=== PATIENT | male | born 1975 | race Caucasian/White ===

== ENCOUNTER 2020-04-22 16:38 | Emergency (ER) | payer OTHER ==
[~2020-04-22 16:38] MED LIST: GLIPIZIDE10 MG PO; METFORMIN1000 M1 PO
== END 2020-04-22 21:05 | disposition short-term general hospital (02) ==
LOC: ED 16:38
DX: Z02.89 Encounter for other administrative examinations (principal)

== ENCOUNTER 2020-04-22 16:38 | Inpatient (IN) | payer OTHER ==
[~2020-04-22] VITALS: Ht 182.9 cm; Wt 98.0 kg
[2020-04-22 16:45] VITALS: Ht 182.9 cm; Wt 98.0 kg
[2020-04-22 18:03] LABS: BASOPHIL % 0.1 % (0-2); RED CELL DISTRIBUTION WIDTH 12.7 % (11.5-14.5)
[2020-04-22 18:04] LABS: PLATELET COUNT 435 x10^3mcL (130-400)
[2020-04-22 18:14] LABS: CALCIUM 9.1 mg/dL (8.5-10.1); CARBON DIOXIDE 21.8 mmol/L (21-32); CREATININE SERUM 2.2 mg/dL (0.7-1.3); POTASSIUM SERUM 5.1 mmol/L (3.5-5.1)
[2020-04-22 18:26] LABS: ALBUMIN 2.2 g/dL (3.4-5.0); BILIRUBIN TOTAL 0.4 mg/dL (0.20-1.00); MAGNESIUM 2.6 mg/dL (1.8-2.4); TOTAL PROTEIN, SERUM 8.4 g/dL (6.4-8.2)
[2020-04-22 18:28] LABS: UA SPECIFIC GRAVITY 1.025 (1.005-1.035); microscopic required? YES; urine erythrocyte 2+ (NEGATIVE)
[2020-04-22 18:51] LABS: AMPHETAMINE QUAL UR NONE DETECTED (See below)
[2020-04-22 22:24] VITALS: BP 175/101
[2020-04-23 05:18] VITALS: BP 156/87
[2020-04-23 06:11] LABS: BASOPHIL % 0.3 % (0-2); PLATELET COUNT 345 x10^3mcL (130-400); RED CELL DISTRIBUTION WIDTH 12.4 % (11.5-14.5)
[2020-04-23 06:28] LABS: CALCIUM 8.1 mg/dL (8.5-10.1); CARBON DIOXIDE 21.4 mmol/L (21-32); CREATININE SERUM 1.9 mg/dL (0.7-1.3); MAGNESIUM 2.3 mg/dL (1.8-2.4); POTASSIUM SERUM 4.7 mmol/L (3.5-5.1)
[2020-04-23 08:31] VITALS: BP 183/94
[2020-04-23 11:59] VITALS: BP 181/95
[2020-04-23 15:51] VITALS: BP 140/78
[2020-04-23 19:59] VITALS: BP 161/92
[2020-04-23 23:07] VITALS: BP 155/87
[2020-04-24] VITALS (7 sets, daily range): BP systolic 122–190; BP diastolic 67–106
[2020-04-25 05:00] VITALS: BP 173/94
[2020-04-25 06:55] LABS: CALCIUM 7.6 mg/dL (8.5-10.1); CARBON DIOXIDE 21.1 mmol/L (21-32); CREATININE SERUM 1.6 mg/dL (0.7-1.3); POTASSIUM SERUM 4.5 mmol/L (3.5-5.1)
[2020-04-25 07:38] VITALS: BP 196/106
[2020-04-25 08:01] LABS: BASOPHIL % 0.6 % (0-2); PLATELET COUNT 391 x10^3mcL (130-400); RED CELL DISTRIBUTION WIDTH 12.4 % (11.5-14.5)
[2020-04-25 12:00] VITALS: BP 186/110
[2020-04-25 16:11] VITALS: BP 154/92
[2020-04-25 20:04] VITALS: BP 167/93
[2020-04-25 21:27] VITALS: BP 174/95
[2020-04-26 06:12] VITALS: BP 180/102
[2020-04-26 07:03] LABS: BASOPHIL % 0.4 % (0-2); RED CELL DISTRIBUTION WIDTH 12.6 % (11.5-14.5)
[2020-04-26 07:05] LABS: PLATELET COUNT 404 x10^3mcL (130-400)
[2020-04-26 07:28] LABS: CALCIUM 8.4 mg/dL (8.5-10.1); CARBON DIOXIDE 22.6 mmol/L (21-32); CREATININE SERUM 1.6 mg/dL (0.7-1.3); POTASSIUM SERUM 4.7 mmol/L (3.5-5.1)
[2020-04-26 08:01] VITALS: BP 113/86
[2020-04-26 12:36] VITALS: BP 165/108
[2020-04-26 17:36] VITALS: BP 157/106
[2020-04-26 20:25] VITALS: BP 165/98
[2020-04-27] VITALS (7 sets, daily range): BP systolic 91–186; BP diastolic 54–109
[2020-04-27 07:05] LABS: BASOPHIL % 0.4 % (0-2); PLATELET COUNT 392 x10^3mcL (130-400); RED CELL DISTRIBUTION WIDTH 12.4 % (11.5-14.5)
[2020-04-27 07:16] LABS: CALCIUM 8.7 mg/dL (8.5-10.1); CARBON DIOXIDE 22.3 mmol/L (21-32); CREATININE SERUM 1.6 mg/dL (0.7-1.3); POTASSIUM SERUM 4.4 mmol/L (3.5-5.1)
[2020-04-28 05:32] VITALS: BP 159/92
[2020-04-28 06:40] LABS: BASOPHIL % 0.3 % (0-2); PLATELET COUNT 366 x10^3mcL (130-400); RED CELL DISTRIBUTION WIDTH 12.4 % (11.5-14.5)
[2020-04-28 07:00] LABS: CALCIUM 8.2 mg/dL (8.5-10.1); CARBON DIOXIDE 21.1 mmol/L (21-32); CREATININE SERUM 1.6 mg/dL (0.7-1.3); POTASSIUM SERUM 4.3 mmol/L (3.5-5.1)
[2020-04-28 08:13] VITALS: BP 157/94
[2020-04-28 12:15] VITALS: BP 143/90
[2020-04-28 16:15] VITALS: BP 143/90
[2020-04-28 20:35] VITALS: BP 162/94
[2020-04-29 05:51] VITALS: BP 154/87
[2020-04-29 08:18] VITALS: BP 168/101
[2020-04-29 12:14] VITALS: BP 172/98
[2020-04-29 16:53] VITALS: BP 145/105
[2020-04-29 20:25] VITALS: BP 170/98
[2020-04-30 00:47] VITALS: BP 132/80
[2020-04-30 06:03] VITALS: BP 167/91
[2020-04-30 06:27] LABS: BASOPHIL % 0.3 % (0-2); PLATELET COUNT 357 x10^3mcL (130-400); RED CELL DISTRIBUTION WIDTH 12.4 % (11.5-14.5)
[2020-04-30 07:07] LABS: CALCIUM 8.6 mg/dL (8.5-10.1); CARBON DIOXIDE 21.9 mmol/L (21-32); CREATININE SERUM 1.6 mg/dL (0.7-1.3); POTASSIUM SERUM 4.4 mmol/L (3.5-5.1)
[2020-04-30 21:54] VITALS: BP 161/86
[2020-05-01 05:11] VITALS: BP 147/86
[2020-05-01 08:05] VITALS: BP 156/93
[2020-05-01 11:57] VITALS: BP 156/100
[2020-05-01 17:41] VITALS: BP 151/96
[2020-05-01 20:24] VITALS: BP 153/98
[2020-05-02 05:25] VITALS: BP 123/70
[2020-05-02 08:04] VITALS: BP 152/90
[2020-05-02 11:51] VITALS: BP 166/92
[2020-05-02 17:14] VITALS: BP 141/85
[2020-05-02 20:44] VITALS: BP 148/95
[2020-05-03 05:26] VITALS: BP 125/74
[2020-05-03 07:07] LABS: CARBON DIOXIDE 24.3 mmol/L (21-32); CREATININE SERUM 1.6 mg/dL (0.7-1.3); POTASSIUM SERUM 4.1 mmol/L (3.5-5.1)
[2020-05-03 07:21] LABS: BASOPHIL % 0.6 % (0-2); PLATELET COUNT 309 x10^3mcL (130-400)
[2020-05-03 08:23] VITALS: BP 157/90
[2020-05-03 12:15] VITALS: BP 138/93
[2020-05-03 17:19] VITALS: BP 146/102
[2020-05-03 22:17] VITALS: BP 180/114
[2020-05-04 05:02] VITALS: BP 166/89
[2020-05-04 07:58] VITALS: BP 176/96
[2020-05-04 12:09] VITALS: BP 153/94
[2020-05-04 15:09] VITALS: BP 153/92
[2020-05-04 16:40] VITALS: BP 150/93
[2020-05-04 21:29] VITALS: BP 156/91
[2020-05-05 05:25] VITALS: BP 139/91
[2020-05-05 08:38] VITALS: BP 155/95
[2020-05-05] MEDS ORDERED: COR6 PO (09:57)
[2020-05-05] MEDS ORDERED: COZ50 PO (09:58)
[2020-05-05] MEDS ORDERED: NOR10 PO (09:58)
[2020-05-05] MEDS ORDERED: LAC PO (09:58)
[2020-05-05] MEDS ORDERED: UNA1I IV (09:59)
[2020-05-05] MEDS ORDERED: AUGMENTIN 875-1 EACH PO (10:01)
[2020-05-05 12:20] VITALS: BP 150/93
[2020-05-05 12:51] VITALS: BP 150/93
== END 2020-05-05 13:50 | disposition home health service (06) | DRG 710 ==
LOC: ED 16:38 → MU 18:58 → EDBEDREQSVC 19:26 → MU 21:05
PROVIDERS: Emergency Medicine; Internal Medicine; Student in an Organized Health Care Education/Training Program; ADMIT Family Medicine; ATTEND Family Medicine
PROC: 0S9P0ZZ Drainage of Right Toe Phalangeal Joint, Open Approach (ICD-10-PCS; principal; 2020-04-25)
PROC: 0QBQ0ZX Excision of Right Toe Phalanx, Open Approach, Diagnostic (ICD-10-PCS; 2020-04-26)
PROC: 0QBQ0ZX Excision of Right Toe Phalanx, Open Approach, Diagnostic (ICD-10-PCS; 2020-04-27)
DX: A41.9 Sepsis, unspecified organism (principal); N17.0 Acute kidney failure with tubular necrosis; E11.621 Type 2 diabetes mellitus with foot ulcer; E11.65 Type 2 diabetes mellitus with hyperglycemia; I10 Essential (primary) hypertension; E11.40 Type 2 diabetes mellitus with diabetic neuropathy, unspecified; D63.8 Anemia in other chronic diseases classified elsewhere; M86.8X7 Other osteomyelitis, ankle and foot; L03.115 Cellulitis of right lower limb; Z88.1 Allergy status to other antibiotic agents; Z83.3 Family history of diabetes mellitus; Z82.49 Family history of ischemic heart disease and other diseases of the circulatory system; Z79.899 Other long term (current) drug therapy
CPT/HCPCS: 82962; 83880; 90715; 97116-GP; G0378; J0295; J0692; J1644; J1815; J1885; J2001; J2405; J2543; J3490; J7030; J7050